=== PATIENT | female | born 1995 | race Asian ===

== ENCOUNTER 2017-05-07 11:56 | Emergency (ER) | payer OTHER ==
[2017-05-07 12:21] VITALS: BP 109/75; PULSE 90; TEMP 98.4; BMI 17.3
[2017-05-07] MEDS ORDERED: IBUPROFEN 600 MG TABLET (FP) PO ONE ×2 (12:58→13:20)
--- NOTE | 2017-05-07 12:58 | PDOC ---
History of Present Illness - General Chief Complaint: Eye Problem Stated Complaint: EYE PROBLEM Time Seen by Provider: 05/07/17 12:36 History Source: Patient Exam Limitations: No Limitations - History of Present Illness Initial Comments: 05/07/17 13:02 Patient is a 21-year-old female no past medical history who presents to emergency department today complaining of right eyelid pain. Patient states that she has had a bump on her right eyelid for approximately 8 months. Today she notes that it was painful. She states the pain a 3 out of 10 and was concerned so she came to the emergency department. Denies fevers, chills, recent illness, dry eye, diplopia, changes in her vision. Past History - Travel Traveled outside of the country in the last 30 days: No Close contact w/someone who was outside of country & ill: No - Past Medical History Allergies/Adverse Reactions: Allergies Allergy/AdvReac Type Severity Reaction Status Date / Time No Known Allergies Allergy Verified 05/07/17 12:21 COPD: No - Immunization History Immunization Up to Date: Yes - Suicide/Smoking/Psychosocial Hx Smoking History: Never smoked Hx Alcohol Use: No Drug/Substance Use Hx: No Review of Systems - Review of Systems Able to Perform ROS?: Yes Comments:: 05/07/17 13:03 CONSTITUTIONAL: Absent: fever, chills, diaphoresis, generalized weakness, malaise, loss of appetite HEENT: Present: R eyelid pain Absent: rhinorrhea, nasal congestion, throat pain, throat swelling, difficulty swallowing, mouth swelling, ear pain, visual Changes CARDIOVASCULAR: Absent: chest pain, loss of consciousness, palpitations, irregular heart rate, peripheral edema RESPIRATORY: Absent: cough, shortness of breath, dyspnea with exertion, orthopnea, wheezing, stridor, hemoptysis SKIN: Absent: rash, itching, pallor NEUROLOGIC: Absent: headache, focal weakness or paresthesias, dizziness, unsteady gait, seizure, mental status changes, bladder or bowel incontinence Is the patient limited Croatian proficient: No *Physical Exam - Vital Signs Last Vital Signs Temp Pulse Resp BP Pulse Ox 98.4 F 90 16 109/75 99 05/07/17 12:18 05/07/17 12:18 05/07/17 12:18 05/07/17 12:18 05/07/17 12:18 - Physical Exam Comments: 05/07/17 13:03 GENERAL: The patient is awake, alert, and fully oriented, in no acute distress. HEAD: Normal with no signs of trauma. EYES: Pupils equal, round and reactive to light, extraocular movements intact, sclera anicteric, conjunctiva clear. 0.5cm chalazion to R eyelid. Vision 20/20 OU. EXTREMITIES: Normal range of motion, no edema. NEUROLOGICAL: Normal speech, normal gait. PSYCH: Normal mood, normal affect. SKIN: Warm, Dry, normal turgor, no rashes or lesions noted. Medical Decision Making - Medical Decision Making 05/07/17 13:04 Patient is 18-year-old female no past medical history resides at 8 months of the chalazion, with pain starting today. We'll give 600 Motrin now for pain. Explained to patient that she needs to follow up with ophthalmology to have this issue addressed. She states that she has appointment in June to see an gas distribution and emergency clerk. We'll refer a new gas distribution and emergency clerk to see if she can get an earlier appointment. Inform the patient to use warm water soaks. We will discharge home at this time. Return precautions given. Patient understands all discharge instructions and all questions were answered. *DC/Admit/Observation/Transfer Diagnosis at time of Disposition: Chalazion of right eyelid Qualifiers: Eyelid: upper Qualified Code(s): H00.11 - Chalazion right upper eyelid - Discharge Dispostion Disposition: HOME Condition at time of disposition: Stable Admit: No - Referrals Referrals: Michel Garcia [Primary Care Provider] - Sergey Singh MD [Staff Physician] - - Patient Instructions Printed Discharge Instructions: DI for Chalazion Additional Instructions: You have a chalazion. These Better by having warm water soaks applied. With a washcloth with the warm water and soak the eyelid for 10-15 minutes 4-5 times a day to help with the size. You may take Motrin every 6 hours as needed for pain. Follow the dosing instructions on the bottle. Please follow-up with an gas distribution and emergency clerk as soon as possible. A referral has been provided for you. (Dr. Singh). Return to the emergency department if you have worsening pain, visual changes, lightheadedness, dizziness or any other changes in your symptoms. - Post Discharge Activity Forms/Work/School Notes: Back to Work
== END 2017-05-07 13:34 | disposition home or self-care (01) ==
LOC: JER 11:56 → JERFT 11:56 → JER 13:34
DX: H00.11 Chalazion right upper eyelid (principal)
CPT/HCPCS: 99283-25

== ENCOUNTER 2017-05-26 15:46 | Emergency (ER) | payer OTHER ==
[2017-05-26 16:04] VITALS: BP 115/71; PULSE 125; TEMP 98.8; BMI 17.3
--- NOTE | 2017-05-26 16:04 | PDOC ---
Rapid Medical Evaluation Time Seen by Provider: 05/26/17 15:59 Medical Evaluation: Allergies Allergy/AdvReac Type Severity Reaction Status Date / Time No Known Allergies Allergy Verified 05/07/17 12:21 I have performed a brief in-person evaluation of this patient. The patient presents with a chief complaint of: dog bite to right lower leg today at work; patient knew the dog and has a copy of its rabies shots Pertinent physical exam findings: very tiny abrasion to posterior proximal right calf without bleeding, surrounding erythema or streaking. Patient is NOT UTD on tetanus I have ordered the following: hcg The patient will proceed to the ED for further evaluation. Discharge Disposition - Diagnosis Dog bite Qualifiers: Encounter type: initial encounter Qualified Code(s): W54.0XXA - Bitten by dog, initial encounter - Referrals - Patient Instructions - Post Discharge Activity
--- NOTE | 2017-05-26 17:35 | PDOC ---
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 Patient states did not bleed. Research Development Director was able to supply vaccination record and dog has all of his vaccinations up-to- date Occurred: reports: just prior to arrival, this afternoon Severity: reports: mild, moderate Pain Location: reports: lower extremity Method of Injury: Yes: other Loss of Consciousness: no loss of consciousness Past History - Travel Traveled outside of the country in the last 30 days: No Close contact w/someone who was outside of country & ill: No - Past Medical History Allergies/Adverse Reactions: Allergies Allergy/AdvReac Type Severity Reaction Status Date / Time No Known Allergies Allergy Verified 05/26/17 16:00 COPD: No Other medical history: denies. - Immunization History Immunization Up to Date: Yes - Suicide/Smoking/Psychosocial Hx Smoking History: Never smoked Hx Alcohol Use: No Drug/Substance Use Hx: No Trauma Specific PMHX - Complaint Specific PMHX Back Injury: No Neck Injury: No Review of Systems - Review of Systems Able to Perform ROS?: Yes Is the patient limited South African proficient: Yes Constitutional: Yes: Symptoms Reported, See HPI HEENTM: Yes: See HPI. No: Symptoms Reported Respiratory: Yes: See HPI. No: Symptoms reported Musculoskeletal: Yes: Symptoms Reported, See HPI, Muscle Pain Integumentary: Yes: Symptoms Reported, See HPI, Bruising, Other (right leg upper calf) Neurological: No: Symptoms reported All Other Systems: Reviewed and Negative *Physical Exam - Vital Signs Last Vital Signs Temp Pulse Resp BP Pulse Ox 98.8 F 125 H 19 115/71 98 05/26/17 16:00 05/26/17 16:00 05/26/17 16:00 05/26/17 16:00 05/26/17 16:00 - Physical Exam General Appearance: Yes: Nourished, Appropriately Dressed. No: Apparent Distress HEENT: positive: [place], Normal ENT Inspection, TMs Normal, Pharynx Normal Respiratory/Chest: positive: Lungs Clear Extremity: positive: Normal Capillary Refill, Normal Range of Motion. negative : Normal Inspection (small ecchymotic area to the superior aspect of right calf. Is bruised only, no broken skin. No hematoma, no significant tenderness at wound site. pants leg has not been torn) Integumentary: positive: Normal Color, Ecchymosis (faint ~ 1cm2 ), Bruising Neurologic: positive: validation manager II-XII NML intact, Fully Oriented, Alert, Normal Mood/ Affect, Normal Response, Motor Strength 07/09 ED Treatment Course - ADDITIONAL ORDERS Additional order review: Laboratory Results 05/26/17 16:33 Urine HCG, Qual Negative Progress Note - Progress Note Progress Note: Dogbite, superficial only. No evidence of skin interruption therefore will treat conservatively and rabies vaccines not indicated. *DC/Admit/Observation/Transfer Diagnosis at time of Disposition: Dog bite Qualifiers: Encounter type: initial encounter Qualified Code(s): W54.0XXA - Bitten by dog, initial encounter - Discharge Dispostion Disposition: HOME Condition at time of disposition: Stable Admit: No - Referrals Referrals: Rosaura Birmingham MD [Primary Care Provider] - - Patient Instructions Printed Discharge Instructions: How to Care for a Domestic Animal Bite Additional Instructions: Rest, elevate wound, may use ice packs for swelling and bruising May use ibuprofen as needed for pain Watch for any changes in redness, swelling, pain or evidence of infection and return to ER further evaluation and treatment - Post Discharge Activity Forms/Work/School Notes: Back to School, Back to Work
== END 2017-05-26 18:06 | disposition home or self-care (01) ==
LOC: JERFT 15:46
DX: S80.871A Other superficial bite, right lower leg, initial encounter (principal); W54.0XXA Bitten by dog, initial encounter; Y93.89 Activity, other specified; Y92.538 Other ambulatory health services establishments as the place of occurrence of the external cause; Y99.0 Civilian activity done for income or pay
CPT/HCPCS: 84703; 99281-25